=== PATIENT | female | born 1980 | race Two or more races ===

== ENCOUNTER 2017-06-16 12:48 | Day surgery (SDC) | payer OTHER ==
[2017-06-16 13:33] VITALS: O2SAT 100
[2017-06-16 14:09] LABS: BLOOD UREA NITROGEN 8 mg/dL (7-17); CALCIUM 8.6 mg/dl (8.6-10.4); CARBON DIOXIDE 28 mmol/L (22-30); CHLORIDE 101 mmol/L (98-107); GFR AFRICAN-AMERICAN > 60; GLUCOSE,RANDOM 76 mg/dL (65-105); POTASSIUM 4.1 mmol/L (3.6-5.2); SODIUM 133 mmol/L (132-148)
[2017-06-16] MEDS ORDERED: Midazolam 2 MG/2 ML VIAL ONE (14:34)
[2017-06-16] MEDS ORDERED: HYDROmorphone 0.5 mg/0.5 ml ISec IVP PRN (14:34)
[2017-06-16] MEDS ORDERED: Propofol 10 mg/ml Inj (20 ML) ONE ×2 (14:35→15:09)
[2017-06-16] MEDS ORDERED: Lactated Ringer's 1,000 ML IV ONE ×2 (14:46→15:16)
[2017-06-16] MEDS ORDERED: Doxycycline 100 mg Inj ONE (14:47)
[2017-06-16] MEDS ORDERED: Oxytocin 10 Units/ml Inj ONE (14:47)
--- NOTE | 2017-06-16 15:30 | PCM.SURG1 ---
Surgeon's Initial Post Op Note - Surgeon's Notes Surgeon: Michelle Tyson MD Frame Assembler: none Type of Anesthesia: General Endo, General LMA Pre-Operative Diagnosis: Anembyonic 7 weeks GA Operative Findings: 10 week size anterverted uteurs, no adnexal masses, stenotic cervix, moderate amounts of products of concpetion, good hemostasis, no complciaotns, urine 25cc clear yellow urine Post-Operative Diagnosis: same as above Operation Performed: Suction dilation and curettage Specimen/Specimens Removed: products of concpetion Estimated Blood Loss: EBL {In ML}: 10 Blood Products Given: N/A Drains Used: No Drains Post-Op Condition: Good Date of Surgery/Procedure: 06/16/17 Time of Surgery/Procedure: 15:00
[2017-06-16 16:28] VITALS: BP 110/60; PULSE 66; RESP 18; TEMP 97
--- NOTE | 2017-06-17 01:40 | OP ---
PROCEDURE DATE: 06/16/2017 PREOPERATIVE DIAGNOSES: Anembryonic , submucosal cyst. POSTOPERATIVE DIAGNOSES: Anembryonic , submucosal cyst. SURGEON: Michelle Tyson MD OIL SEPARATOR: None. OPERATIVE FINDINGS: A 10-week sized anteverted uterus, no adnexal masses, stenotic cervix, moderate amount products of conception. Good hemostasis. No complications. URINE: 25 mL of clear urine. OPERATION PERFORMED: Suction dilation and curettage. TYPE OF ANESTHESIA: General LMA. SPECIMENS REMOVED: Products of conception. ESTIMATED BLOOD LOSS: 10 mL. BLOOD PRODUCTS: None. COMPLICATIONS: None. DESCRIPTION OF PROCEDURE: The patient was taken to the operating room where she was given general anesthesia. Once found to be adequate, she was placed on the operating table in dorsal lithotomy position with legs supported using stirrups. The patient was then prepped and draped in the usual sterile fashion. Time-out confirmed correct patient and correct procedure. The patient given preoperative prophylactic antibiotic. Straight catheter was then inserted into the urethra and 25 mL of clear yellow urine were obtained. Following this, bimanual exam was performed with above-mentioned findings. A Agustin retractor was placed in the anteroposterior fornix of the vagina. Cervix was adequately visualized. A Teale tenaculum was placed on the anterior lip of the cervix and the cervix was sequentially dilated with a Timothy dilator to allow further introduction of the 7-mm curved suction curette, which was advanced to the fundus. The suction curette was then activated and rotated 360 degrees until all products of conception were then removed. Following this, a gentle curettage was done 360 degrees until gritty texture was noted. The suction curette was then advanced one final time until air bubbles was noted within the suction curette. All instruments were removed. There was good hemostasis noted at the tenaculum puncture site. At the end of the procedure, all needle, sponge, and instrument counts were noted and correct x2. The patient tolerated the procedure well and was transferred to the recovery room in stable condition. Michelle Tyson MD JOB # [id number]
== END 2017-06-16 17:48 | disposition home or self-care (01) ==
LOC: C.SDS 12:48
PROVIDERS: ATTEND Obstetrics & Gynecology
DX: O02.0 Blighted ovum and nonhydatidiform mole (principal); Z3A.10 10 weeks gestation of pregnancy
CPT/HCPCS: 36415; 59820; 80048; 88305; J2250; J2704; J3010; J7120